=== PATIENT | male | born 1995 | race Caucasian/White ===

== ENCOUNTER 2023-06-19 11:47 | Emergency (ER) | payer SELFPAY ==
[~2023-06-19] VITALS: Ht 182.9 cm; Wt 145.0 kg
[2023-06-19 11:59] VITALS: O2SAT 97
[2023-06-19 12:54] LABS: BASOPHILS % 0.3 % (0.0-2.0); EOSINOPHILS % 0.6 % (0.0-5.0); HEMOGLOBIN. 15.3 g/dL (14.0-18.0); LYMPHOCYTES % 17.4 % (20.0-50.0); MEAN CORPUSCULAR HEMOGLOBIN 29.7 pg (28.0-32.0); MEAN CORPUSCULAR HGB CONC 33.9 g/dL (31.0-37.0); MEAN CORPUSCULAR VOLUME 87.6 fL (80.0-94.0); MEAN PLATELET VOLUME 8.1 fl (7.4-10.4); MONOCYTES % 3.7 % (2.0-8.0); PLATELET 259 x1000/uL (130-400); RED BLOOD CELL COUNT 5.13 mill/uL (4.7-6.1); RED CELL DISTRIBUTION WIDTH 13.6 % (11.6-14.6); WHITE BLOOD COUNT 12.4 x1000/uL (4.5-11.0)
[2023-06-19 13:07] LABS: ALANINE AMINOTRANSFERASE 25 IU/L (10-49); ALBUMIN 4.5 g/dL (3.2-4.8); ASPARTATE AMINOTRANSFERASE 20 IU/L (<34); BILIRUBIN TOTAL 0.4 mg/dL (0.1-1.0); CALCIUM 8.8 mg/dL (8.7-10.4); CARBON DIOXIDE 22 mEq/L (21-32); CHLORIDE 107 mEq/L (98-107); CREATININE 0.7 mg/dL (0.6-1.3); GLUCOSE 123 mg/dL (70-105); POTASSIUM 3.9 mEq/L (3.5-5.1); PROTEIN TOTAL 7.9 g/dL (6.0-8.3); SODIUM 135 mEq/L (136-145); UREA NITROGEN BLOOD 10 mg/dL (9-23)
[2023-06-19 13:09] LABS: TROPONIN I HIGH SENSITIVITY < 4 ng/L (3.0-53)
[2023-06-19] MEDS ORDERED: BUPIVACAINE HCL/PF 0.5% (5MG/ML) 10ML ONE (14:59)
[2023-06-19] MEDS ORDERED: SKIN ADHESIVE 0.7 GM EA TOP ONE (14:59)
[2023-06-19] MEDS ORDERED: ONDANSETRON HCL 4MG/2ML INJ IV PRN (15:30)
[2023-06-19] MEDS ORDERED: MORPHINE SULFATE 2 MG/ML CPJ (NOT FOR IM USE) IV PRN (15:30)
[2023-06-19] MEDS ORDERED: HYDROCODONE/ACETAMINOPHEN 5/325MG TABLET PO PRN ×2 (15:30)
[2023-06-19] MEDS ORDERED: MORPHINE SULFATE 4 MG/ML CPJ (NOT FOR IM USE) IV PRN (15:30)
[2023-06-19] MEDS: ACETAMINOPHEN 325MG TABLET PO NR (15:40)
[2023-06-19] MEDS: CEFOXITIN SODIUM 1 G in DEXTROSE 5% WATER 50 ML IV SCH (15:40)
[2023-06-19 15:42] LABS: PROTHROMBIN TIME 11.1 sec (9.6-11.0)
[2023-06-19] MEDS ORDERED: NALOXONE HCL 0.4MG/ML VIAL IV PRN (15:45)
[2023-06-19] MEDS ORDERED: DEXT 5%/0.45% NACL KCL 20MEQ/L 1,000 ML IV SCH (16:00)
[2023-06-19] MEDS ORDERED: CEFP100T8 MT (17:11)
[2023-06-19 17:16] VITALS: BP 133/72; PULSE 88; RESP 18; TEMP 98.7
== END 2023-06-19 17:23 | disposition left against medical advice (07) ==
LOC: ER 15:15 → CANBEDREQ 17:01 → ER 17:23
DX: R10.9 Unspecified abdominal pain (principal)
CPT/HCPCS: 99285; 74176; 96365; 71045; 80053; 83690; 85025; 85610; 86850; 86900; 86901; 84484; 36415; J0694; J7060; J3490